=== PATIENT | female | born 1970 | race Caucasian/White ===

== ENCOUNTER 2020-09-08 | Emergency (ER) | payer SELFPAY ==
[~2020-09-08] VITALS: Ht 160 cm; Wt 49.0 kg
[2020-09-08] MEDS ORDERED: IBU600 MG PO (00:51)
== END 2020-09-08 01:04 | disposition home or self-care (01) ==
LOC: ED
DX: S90.31XA Contusion of right foot, initial encounter (principal); W22.8XXA Striking against or struck by other objects, initial encounter; Z87.891 Personal history of nicotine dependence; Z88.1 Allergy status to other antibiotic agents; Z88.0 Allergy status to penicillin
CPT/HCPCS: 73630; 99283-25; A9270

== ENCOUNTER 2025-01-31 17:46 | Emergency (ER) | payer OTHER ==
[~2025-01-31] VITALS: Ht 160 cm; Wt 42.0 kg
[~2025-01-31 17:46] MED LIST: IBU600 MG PO
[2025-01-31] MEDS ORDERED: ASPIRIN 81 MG CHEW PO ONE (20:00)
[2025-01-31] MEDS ORDERED: NITROGLYCERIN 0.4 MG SUBL SL PRN (20:00)
[2025-01-31 20:10] LABS: BASOPHILS 0.5 % (0.1-1.2); EOSINOPHILS 2.2 % (0.7-5.8); LYMPHOCYTES 15.5 % (19.3-51.7); MCH 23.4 PG (25.6-32.2); MCHC 30.6 g/dL (32.2-35.5); MCV 76.4 fL (79.4-94.8); MONOCYTES 2.9 % (4.7-12.5); NEUTROPHILS 78.2 % (34.0-71.1); RBC 4.49 M/uL (3.93-5.22)
[2025-01-31 20:13] LABS: BLOOD/HGB, URINE TRACE-I (Negative); KETONE, URINE NEGATIVE (Negative); LEUK ESTERASE, URINE NEGATIVE (negative); NITRITE, URINE NEGATIVE (negative)
[2025-01-31] MEDS ORDERED: MORPHINE SULFATE 4 MG/ML VIAL IV ONE (20:15)
[2025-01-31] MEDS ORDERED: LACTATED RINGER'S 1,000 ML IV ONE (20:15)
[2025-01-31 20:24] LABS: BACTERIA, URINE NONE SEEN /hpf (negative); CASTS, URINE NONE SEEN \\lpf; CRYSTALS, URINE NONE SEEN (0-1+); EPITHELIAL CELLS, URINE SQUAMOUS 1+ /lpf (0-1+); REFLEX CULTURE, URINE No (No)
[2025-01-31 20:30] LABS: AMPHETAMINES, URINE POSITIVE (NEGATIVE); BARBITURATES, URINE NEGATIVE (NEGATIVE); BENZODIAZEPINE, URINE NEGATIVE (NEGATIVE); CANNABINOID, URINE POSITIVE (NEGATIVE); COCAINE, URINE NEGATIVE (NEGATIVE); ECSTASY, URINE POSITIVE (NEGATIVE); FENTANYL, URINE NEGATIVE (NEGATIVE); METHADONE, URINE NEGATIVE (NEGATIVE); OPIATES, URINE NEGATIVE (NEGATIVE); OXYCODONE, URINE NEGATIVE (NEGATIVE); PHENCYCLIDINE, URINE NEGATIVE (NEGATIVE)
[2025-01-31 20:31] LABS: ALT (SGPT) 45.0 U/L (14-59); AST (SGOT) 39.0 U/L (15-37); GLOMERULAR FILTRATION RATE,EST 117.0 mL/min (>60); PROTEIN, TOTAL 7.0 g/dL (6.4-8.2); UREA NITROGEN 15.0 mg/dL (7-18)
[2025-01-31] MEDS ORDERED: KETOROLAC TROMETHAMINE 30 MG/ML VIAL IV ONE (21:30)
[2025-01-31] MEDS ORDERED: COLCHICINE 0.6 MG TAB PO ONE (23:30)
[2025-02-01] MEDS ORDERED: FAMOTIDINE 20 MG/ 2 ML VIAL IV ONE (00:15)
[2025-02-01 00:51] LABS: LACTIC ACID, BLOOD 0.6 mmol/L (0.4-2.0)
[2025-02-01] MEDS ORDERED: COLCHICINE0.6 M1 PO (02:33)
[2025-02-01] MEDS ORDERED: PRILOSEC OTC20 MG PO (02:38)
[2025-02-01] MEDS ORDERED: DOXYCYCLINE HY100 MG PO (02:38)
[2025-02-01] MEDS ORDERED: COLCHICINE 0.6 MG TAB PO ONE (02:45)
[2025-02-01 03:02] VITALS: BP 112/79
--- NOTE | 2025-02-01 13:55 | EKG ---
[facility] [address] [facility] [place] [address] Signed Normal sinus rhythm Normal ECG When compared with ECG of 31-JAN-2025 23:48, (Unconfirmed) No significant change was found Confirmed by Manas Linn DO ([id number]) on 02/01/2025 1:55:13 PM Electronically Signed By: MANAS LINN DO 02/01/25 1355 PATIENT NAME: RIZWANAGWENDOLYN Electrocardiogram DATE OF : 66 PHYSICIAN: MANAS LINN DO REPORT #: [id number] REPORT IS CONFIDENTIAL AND NOT TO BE RELEASED WITHOUT AUTHORIZATION
--- NOTE | 2025-02-01 13:55 | EKG ---
[facility] [address] [facility] [place], [place] [address] Signed Sinus tachycardia Incomplete right bundle branch block Borderline ECG No previous ECGs available Confirmed by Clemencia Linn DO ([id number]) on 02/01/2025 1:54:58 PM Electronically Signed By: CLEMENCIA LINN DO 02/01/25 1355 PATIENT NAME: GWENDOLYN WAGONER Electrocardiogram DATE OF : 66 PHYSICIAN: CLEMENCIA LINN DO REPORT #: [id number] REPORT IS CONFIDENTIAL AND NOT TO BE RELEASED WITHOUT AUTHORIZATION
--- NOTE | 2025-02-01 13:55 | EKG ---
[facility] [address] [facility] [place], [place] [address] Signed Normal sinus rhythm Normal ECG No previous ECGs available Confirmed by Clemencia Linn DO ([id number]) on 02/01/2025 1:55:09 PM Electronically Signed By: CLEMENCIA LINN DO 02/01/25 1355 PATIENT NAME: GWENDOLYN WAGONER Electrocardiogram DATE OF : 66 PHYSICIAN: CLEMENCIA LINN DO REPORT #: [id number] REPORT IS CONFIDENTIAL AND NOT TO BE RELEASED WITHOUT AUTHORIZATION
--- NOTE | 2025-02-01 13:55 | EKG ---
[facility] [facility] [address] [facility] [place], [place] [address] Signed Sinus tachycardia Nonspecific ST abnormality Abnormal ECG No previous ECGs available Confirmed by Clemencia Linn DO ([id number]) on 02/01/2025 1:55:02 PM Electronically Signed By: CLEMENCIA LINN DO 02/01/25 1355 PATIENT NAME: GWENDOLYN WAGONER Electrocardiogram DATE OF : 66 PHYSICIAN: CLEMENCIA LINN DO REPORT #: [id number] REPORT IS CONFIDENTIAL AND NOT TO BE RELEASED WITHOUT AUTHORIZATION
== END 2025-02-01 03:04 | disposition home or self-care (01) ==
LOC: ED 17:46
PROVIDERS: Internal Medicine
DX: I31.9 Disease of pericardium, unspecified (principal); Z88.0 Allergy status to penicillin; Z91.040 Latex allergy status; Z88.1 Allergy status to other antibiotic agents; Z87.891 Personal history of nicotine dependence
CPT/HCPCS: 36415; 71045; 71260; 80053; 80307; 81001; 83605; 83690; 83735; 83880; 84484; 85025; 85379; 86140; 93005; 93010; 96365; 96375; 99285-25; A9270; J0696; J1885; J7121; Q9967